=== PATIENT | male | born 1995 | race Caucasian/White ===

== ENCOUNTER 2017-09-16 02:49 | Emergency (ER) | payer OTHER ==
[2017-09-16 03:00] VITALS: O2SAT 94
--- NOTE | 2017-09-16 03:10 | EMERGENCY ROOM VISIT NOTE ---
History Report prepared by Harris: Sebastian Banks Under the Supervision of: Dr. Alisa Mcginnis D.O. First contact with patient: 02:56 Chief Complaint: ALCOHOL OVERDOSE Stated Complaint: ALCOHOL Nursing Triage Summary: pt was found in the road unresponsive, pt cold, pt has multiple abrasion, left shoulder, face, bilat hands. pt does not know how he got them. asked pt if he was drinking beer or liquor or both and pt stated " a lot ". Ashley hugger placed on pt History of Present Illness HPI Limited due to patient alcohol intoxication. The patient is a 21 year old male who presents to the Emergency [facility] via [facility] due to alcohol intoxication. Per EMS the patient was found laying face down in the street by police on [facility] just prior to arrival. EMS note the patient appears to have fallen on his face, and has abrasions to his knees. The patient denies any pain. Source of History: patient, EMS Onset: Just MACHINE RIGGER Position: other (Global) Quality: other (EtOH intox) Note: Abrasions to face and knees Review of Systems HPI Limited due to patient intoxication. Social History Smoking Status: Unknown if Ever Smoked Current/Historical Medications Unable to Obtain Active Prescriptions or Reported Meds Physical Exam Vital Signs Date Time Temp Pulse Resp B/P (MAP) Pulse Ox O2 Delivery O2 Flow Rate FiO2 09/16/17 12:18 93 18 125/82 97 09/16/17 09:16 89 16 112/48 97 Room Air 09/16/17 07:53 103 16 104/73 97 Room Air 09/16/17 07:23 108 09/16/17 07:08 104 16 110/52 96 Room Air 09/16/17 06:05 79 18 110/61 96 Room Air 09/16/17 05:13 36.4 09/16/17 03:46 78 18 145/103 97 Room Air 09/16/17 03:00 68 09/16/17 03:00 94 Room Air 09/16/17 03:00 35.9 99 20 131/96 94 Room Air Physical Exam Physical Examination limited due to intoxication. GENERAL: Smells of EtOH. There are superficial abrasions to left superior forehead. EYE EXAM: normal conjunctiva, PERRL and EOM's grossly intact OROPHARYNX: no exudate, no erythema, lips, buccal mucosa, and tongue normal and mucous membranes are moist NECK: supple, no nuchal rigidity, no adenopathy, non-tender LUNGS: Clear to auscultation. Normal chest wall mechanics HEART: no murmurs, S1 normal and S2 normal ABDOMEN: abdomen soft, non-tender, normo-active bowel sounds, no masses, no rebound or guarding. BACK: Back is symmetrical on inspection and there is no deformity, no midline tenderness, no CVA tenderness. SKIN: no rashes UPPER EXTREMITIES: There is a superficial abrasion to the left shoulder. LOWER EXTREMITIES: Superficial abrasion to the left hip. NEURO EXAM: Awake. Follows basic commands. Moves all extremities spontaneously. Unable to cooperate for further neurologic testing. Medical Decision & Procedures ER Provider Diagnostic Interpretation: Radiology results have been interpreted by the radiologist and reviewed by me. CT HEAD: No acute intracranial abnormality identified. Mild left frontal scalp hematoma. No acute fractures. Mild mucosal thickening in the maxillary sinuses. CT C SPINE: no acute traumatic abnormality identified. Probable old trauma to the C7 spinous process. Small scattered lymph nodes are likely reactive. Radiologist: Stormy Odonnell M.D. CHEST X-RAY: A study of the chest was reviewed and was negative for infiltrate, effusion, pneumothorax, or wide mediastinum. PELVIS X-RAY: No fracture no dislocation Laboratory Results 09/16/17 03:34 Red Blood Count 5.55, Mean Corpuscular Volume 85.4, Mean Corpuscular Hemoglobin 30.6, Mean Corpuscular Hemoglobin Concent 35.9, Neutrophils (%) (Auto) 71.8, Lymphocytes (%) (Auto) 24.4, Monocytes (%) (Auto) 2.8, Eosinophils (%) (Auto) 0.8, Basophils (%) (Auto) 0.1, Neutrophils # (Auto) 5.64, Lymphocytes # (Auto) 1.92, Monocytes # (Auto) 0.22, Eosinophils # (Auto) 0.06, Basophils # (Auto) 0.01 09/16/17 03:34 Test 09/16/17 03:34 White Blood Count 7.86 K/uL (4.8-10.8) Red Blood Count 5.55 M/uL (4.7-6.1) Hemoglobin 17.0 g/dL (14.0-18.0) Hematocrit 47.4 % (42-52) Mean Corpuscular Volume 85.4 fL (80-100) Mean Corpuscular Hemoglobin 30.6 pg (25-34) Mean Corpuscular Hemoglobin Concent 35.9 g/dl (32-36) Platelet Count 211 K/uL (130-400) Neutrophils (%) (Auto) 71.8 % Lymphocytes (%) (Auto) 24.4 % Monocytes (%) (Auto) 2.8 % Eosinophils (%) (Auto) 0.8 % Basophils (%) (Auto) 0.1 % Neutrophils # (Auto) 5.64 K/uL (1.4-6.5) Lymphocytes # (Auto) 1.92 K/uL (1.2-3.4) Monocytes # (Auto) 0.22 K/uL (0.11-0.59) Eosinophils # (Auto) 0.06 K/uL (0-0.5) Basophils # (Auto) 0.01 K/uL (0-0.2) Immature Granulocyte % (Auto) 0.1 % Immature Granulocyte # (Auto) 0.01 K/uL (0.00-0.02) Anion Gap 11.0 mmol/L (3-11) Estimated GFR () 84.1 Estimated GFR (Non- 72.6 BUN/Creatinine Ratio 8.4 (10-20) Calcium Level 8.3 mg/dl (8.5-10.1) Ethyl Alcohol mg/dL 376.0 mg/dl (0-3) Laboratory results per my review. ED Course 0305: The patient was evaluated in room B4B. A complete history and physical exam was performed. 0329: Ordered Zofran 4 mg IV. 0330: Ordered Pantoprazole 10 mL @ 5 mL/hr IV. 0430: Ordered Lorazepam 2 mg IM prn. 0453: I checked on the patient at this time. He is sleeping in bed. 0730: Patient wakes up to voice. Repeat exam unchanged. Denies pain. 0800: Pt signed out to Dr. Alarcon pending sobriety and re-evaluation given trauma. Medical Decision Differential diagnosis: Etiologies such as alcohol intoxication, toxicologic, infection, hypoglycemia, electrolyte abnormalities, cardiac sources, intracerebral event, neurologic, as well as others were entertained. Labs and imaging here reassuring. I have a low suspicion for any additional occult traumatic injury. Repeat exam unchanged despite patient's intoxication. Patient slightly more alert at the time of signout to Dr. Alacron. Patient with mild tachycardia noted here, the patient has been intermittently agitated but has been redirectable. I do not suspect alcohol withdrawal or DTs. Medication Reconcilliation Current Medication List: was personally reviewed by me Blood Pressure Screening Patient's blood pressure: Normal blood pressure Impression Primary Impression: Alcohol use with intoxication Additional Impressions: Closed head injury Contusion Abrasion Hypokalemia Scribe Attestation The scribe's documentation has been prepared under my direction and personally reviewed by me in its entirety. I confirm that the note above accurately reflects all work, treatment, procedures, and medical decision making performed by me. Departure Information Dispostion Still a Patient (Patient will be signed out to Dr. Alarcon at Change of Shift) Prescriptions Unable to Obtain Active Prescriptions or Reported Meds Referrals No Doctor, Assigned (PCP) Patient Instructions My [facility] Problem Qualifiers Additional Impressions: Closed head injury Encounter type: initial encounter Qualified Codes: S09.90XA - Unspecified injury of head, initial encounter Contusion Encounter type: initial encounter Contusion area: head Contusion of head detail: unspecified part of head Qualified Codes: S00.93XA - Contusion of unspecified part of head, initial encounter
[2017-09-16] MEDS ORDERED: ONDANSETRON INJ 2 MG/ML 2 ML VIAL IV STA (03:29)
[2017-09-16] MEDS ORDERED: PANTOprazole INJ 40 MG in SYRINGE 0 ML IV ONE (03:30)
[2017-09-16 03:55] LABS: BASO % 0.1 %; BASO ABS # 0.01 K/uL (0-0.2); EOS % 0.8 %; EOS ABS # 0.06 K/uL (0-0.5); HEMATOCRIT 47.4 % (42-52); IG# 0.01 K/uL (0.00-0.02); LYMPH % 24.4 %; LYMPH ABS # 1.92 K/uL (1.2-3.4); MEAN CELL VOLUME 85.4 fL (80-100); MEAN CORPUSCULAR HEMOGLOBIN 30.6 pg (25-34); MEAN CORPUSCULAR HGB CONC 35.9 g/dl (32-36); MONO % 2.8 %; MONO ABS # 0.22 K/uL (0.11-0.59); NEUT % 71.8 %; NEUT ABS # 5.64 K/uL (1.4-6.5); PLATELET COUNT 211 K/uL (130-400); WHITE BLOOD COUNT 7.86 K/uL (4.8-10.8)
[2017-09-16 04:04] LABS: BLOOD UREA NITROGEN 12 mg/dl (7-18); CALCIUM 8.3 mg/dl (8.5-10.1); CARBON DIOXIDE 27 mmol/L (21-32); CREATININE 1.38 mg/dl (0.60-1.40); GLUCOSE 139 mg/dl (70-99); POTASSIUM 2.9 mmol/L (3.5-5.1); SODIUM 137 mmol/L (136-145)
[2017-09-16] MEDS ORDERED: LORAZEPAM 2 MG/ML 1 ML VIAL IM PRN (04:30)
[2017-09-16 05:13] VITALS: TEMP 36.4
[2017-09-16] MEDS ORDERED: POTASSIUM CHLORIDE 10 MEQ TABCR PO STA (07:51)
--- NOTE | 2017-09-16 08:02 | DIAGNOSTIC IMAGING REPORT ---
CT OF THE HEAD WITHOUT CONTRAST CLINICAL HISTORY: trauma, etoh COMPARISON STUDY: No previous studies for comparison. TECHNIQUE: Helical axial images of the head were obtained without IV contrast. Automated exposure control was utilized for the study. A dose lowering technique was utilized adhering to the principles of ALARA. FINDINGS: No acute intracranial hemorrhage, midline shift or mass effect is present. Ventricular system is normal. Basilar cisterns are patent. Watts-white differentiation is maintained. There is a small left forehead contusion. There is no calvarial fracture. IMPRESSION: 1. No acute intracranial findings. 2. Small left forehead contusion. No calvarial fracture. Electronically signed by: Arsen Constantino M.D. 09/16/2017 8:01 AM Dictated Date/Time: 09/16/2017 7:59 AM
--- NOTE | 2017-09-16 08:28 | DIAGNOSTIC IMAGING REPORT ---
CT OF THE CERVICAL SPINE WITHOUT CONTRAST CLINICAL HISTORY: trauma, etoh COMPARISON STUDY: No previous studies for comparison. TECHNIQUE: Helical axial images of the cervical spine were obtained without IV contrast. Sagittal and coronal reconstructions were viewed. A dose lowering technique was utilized adhering to the principles of ALARA. FINDINGS: Alignment of the cervical spine is anatomic. No acute fracture is identified. Craniocervical junction is intact. A lucency with sclerotic margins through the spinous process of C7 is chronic. There is no prevertebral edema. Facet joints are intact. IMPRESSION: No acute cervical spine fracture or subluxation. Electronically signed by: Arsen Constantino M.D. 09/16/2017 8:27 AM Dictated Date/Time: 09/16/2017 8:25 AM
--- NOTE | 2017-09-16 08:30 | DIAGNOSTIC IMAGING REPORT ---
PORTABLE AP SEMISUPINE CHEST RADIOGRAPH CLINICAL HISTORY: trauma COMPARISON STUDY: No previous studies for comparison. FINDINGS: Lung volumes are mildly diminished. No airspace opacities are identified. There is no pneumothorax or pleural effusion. There is mild enlargement of the cardiac silhouette. IMPRESSION: 1. No acute cardiopulmonary findings. 2. Mild enlargement of the cardiac silhouette which is likely technical. Electronically signed by: Arsen Constantino M.D. 09/16/2017 8:28 AM Dictated Date/Time: 09/16/2017 8:27 AM
--- NOTE | 2017-09-16 08:30 | DIAGNOSTIC IMAGING REPORT ---
PELVIS 1 OR 2 VIEW ROUTINE CLINICAL HISTORY: trauma COMPARISON STUDY: No previous studies for comparison. FINDINGS: The sacroiliac joints and symphysis pubis are intact. There is no acute fracture within the pelvis or hips. IMPRESSION: No acute fracture within the pelvis or hips. Electronically signed by: Arsen Constantino M.D. 09/16/2017 8:29 AM Dictated Date/Time: 09/16/2017 8:29 AM
[2017-09-16 12:18] VITALS: BP 125/82; PULSE 93; O2SAT 97
--- NOTE | 2017-09-16 14:06 | EMERGENCY ROOM VISIT NOTE ---
ED Visit Note First contact with patient: 07:55 I evaluated the patient, and he was awake, alert, and following commands. He knows where he is and the year. 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 The patient was reevaluated and discharged at 1209. At this time his inability around the room without difficulty. I instructed him not drive for the remainder of the day and no additional drinking. Friend presented to bedside and took the patient home per nursing. Patient was able to hold a complete conversation without difficulty/slurring his words. Discussed with Pt concerning signs and symptoms to watch out for. Pt was instructed to follow up with their PCP and discussed with the patient their option to return to the ED at anytime for persistent or worsening symptoms. The appropriate anticipatory guidance and out-patient management, including indications for return to the emergency department, were explained at length to the patient and understood.
== END 2017-09-16 12:21 | disposition home or self-care (01) ==
LOC: EDBD 02:52 → C.EDB 02:52
DX: F10.929 Alcohol use, unspecified with intoxication, unspecified (principal); S00.81XA Abrasion of other part of head, initial encounter; S80.211A Abrasion, right knee, initial encounter; S80.212A Abrasion, left knee, initial encounter; E87.6 Hypokalemia; W19.XXXA Unspecified fall, initial encounter